=== PATIENT | female | born 1975 | race Caucasian/White ===

== ENCOUNTER → 2020-11-15 | Outpatient (CLI) | payer OTHER ==
--- NOTE | 2020-11-15 11:35 | RAD ---
EXAM: Abdomen, single view. HISTORY: Diarrhea. COMPARISON: None. FINDINGS: Frontal views of the abdomen and pelvis are obtained. There is a small amount of gas within nondistended loops of small and large bowel. There is a small amount of stool within the rectum. The re is no evidence of bowel obstruction. There is an incidental transitional lumbosacral segment. Ther e are multiple pelvic phleboliths. IMPRESSION: Nonobstructive bowel gas pattern. Electronically signed by: Beth Murphy MD (11/15/2020 11:32 AM) [id number]
== END ==
LOC: RAD 11:02
PROVIDERS: ATTEND Nurse Practitioner Family
DX: R19.7 Diarrhea, unspecified (principal); I87.8 Other specified disorders of veins
CPT/HCPCS: 74018